=== PATIENT | male | born 1965 | race Caucasian/White ===

== ENCOUNTER 2020-09-30 18:57 | Emergency (ER) | payer BC ==
[2020-09-30 20:03] LABS: HEMOGLOBIN 16.2 gm/dl (14.0-17.5); RED BLOOD COUNT 5.05 M/UL (4.20-5.50); WHITE BLOOD COUNT 7.9 K/UL (4.5-11.0)
[2020-09-30 20:26] LABS: BUN/CREATININE RATIO 19 (0-10)
== END 2020-09-30 21:10 | disposition home or self-care (01) ==
LOC: ER1 18:57
PROVIDERS: Physician Assistant
DX: M79.662 Pain in left lower leg (principal); E78.5 Hyperlipidemia, unspecified; I10 Essential (primary) hypertension; Z90.49 Acquired absence of other specified parts of digestive tract; Z88.0 Allergy status to penicillin
CPT/HCPCS: 80053; 85025; 85379; 99283

== ENCOUNTER → 2020-10-01 | Outpatient (CLI) | payer BC | LOC: KOH-I 15:30 | DX: R22.42 Localized swelling, mass and lump, left lower limb (principal); M79.605 Pain in left leg | CPT/HCPCS: 93971 ==

== ENCOUNTER → 2021-07-26 | Outpatient (CLI) | payer BC | LOC: KOH-I 10:11 | DX: M50.30 Other cervical disc degeneration, unspecified cervical region (principal) | CPT/HCPCS: 72040 ==

== ENCOUNTER → 2021-12-05 | Outpatient (CLI) | payer BC | LOC: SLEEP 10:18 | DX: G47.33 Obstructive sleep apnea (adult) (pediatric) (principal); G47.61 Periodic limb movement disorder | CPT/HCPCS: 95810 ==